=== PATIENT | female | born 1950 | race Caucasian/White ===

== ENCOUNTER 2017-03-20 16:05 | Emergency (ER) | payer BC ==
[2017-03-20 19:19] LABS: APPEARANCE SLT CLOUDY (CLEAR); BACTERIA FEW /hpf (NONE SEEN); BILIRUBIN NEGATIVE (NEGATIVE); EPITHELIAL CELLS 0-5 /hpf (0-5); GLUCOSE NEGATIVE (NEGATIVE); KETONE SMALL mg/dL (NEGATIVE); MUCUS <1+ /lpf (NONE SEEN); NITRITE NEGATIVE (NEGATIVE); PROTEIN NEGATIVE (NEGATIVE); RED CELLS - URINE >50 /hpf (0-5); UROBILINOGEN NORMAL (NORMAL); WHITE CELLS - URINE 0-5 /hpf (0-5)
== END 2017-03-20 19:19 | disposition home or self-care (01) ==
LOC: D.ER 16:05
PROVIDERS: Family Medicine
DX: R10.9 Unspecified abdominal pain (principal); N20.1 Calculus of ureter

== ENCOUNTER 2018-03-09 15:07 | Day surgery (SDC) | payer BC, MEDICARE ==
[~2018-03-09] VITALS: Ht 152.4 cm; Wt 56.8 kg
--- NOTE | ~2018-03-09 | OP ---
PATIENT NAME: FLAKO PIÑA MEDICAL RECORD: [id number] :50 [facility] AD[facility]ION DATE: SURGEON: SEBASTIÁN MAN DO DATE OF OPERATION: 03/09/2018 PROCEDURE: Colonoscopy with polypectomy. INDICATIONS FOR PROCEDURE: Stool DNA-based colorectal cancer screening, positive test. SCOPE: Olympus video pediatric colonoscope. MEDICATIONS: Propofol 400 mg IV per anesthesia. WITHDRAWAL TIME: 13 minutes. ESTIMATED BLOOD LOSS: Minimal. COMPLICATIONS: None. FINDINGS: Informed consent was given. The patient was made comfortable with the above medication. After reaching an adequate level of sedation by slow IV push, the patient was placed on her left side. A digital rectal examination was performed and was normal. The endoscope was then advanced under direct visualization through the rectum to the cecum and terminal ileum. The endoscope was slowly withdrawn and mucosa was carefully examined. The prep quality was excellent. There was evidence of pqsvbhnj-ea-ghdkam diverticulosis involving the descending and sigmoid colon. There was no evidence of diverticulitis. There were 4 polyps visualized on today's examination. Two of these polyps were located in the sigmoid colon. They were both benign appearing and sessile and ranged in size from 4-6 mm in diameter. They were both removed using a hot snare in 1 piece and completely retrieved. In the rectum, there were two benign-appearing mixed flat and sessile polyps, which ranged in size from 2-3 mm in diameter. They were both removed using a hot forceps. Retroflexion was performed in the rectum with visualization of grade I internal hemorrhoids without bleeding. The endoscope was then withdrawn from the patient. The patient tolerated the procedure well and there were no complications. IMPRESSION: 1. Four polyps as described above, removed using a combination of hot forceps and a hot snare. 2. Boicltre-bs-wtrzeh diverticulosis of the descending and sigmoid colon. 3. Grade I internal hemorrhoids without bleeding. PLAN AND RECOMMENDATIONS: 1. Discharge home when recovery parameters are met. 2. Follow up biopsy specimen results. 3. High fiber diet. 4. Continue current medications. 5. Recall colonoscopy in 3 years for surveillance of personal history of polyps. 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
[2018-03-09 09:18] LABS: HEMATOCRIT 48.8 % (36.0-48.0); HEMOGLOBIN 16.9 g/dL (12-16); MCH 32.6 pg (26.0-34.0); MCHC 34.6 g/dL (31.0-37.0); MEAN PLATELET VOLUME 11.4 fL (7.4-10.4); RBC 5.19 10x6/uL (4.00-5.40); RDW 12.9 % (11.5-14.5); WBC 10.6 10x3/uL (4.8-10.8)
[2018-03-09 10:12] VITALS: BP 138/71; Ht 152.4 cm; Wt 56.8 kg
[~2018-03-09 15:07] MED LIST: CRESTOR10 MG PO; MOBIC7.5 MG PO; SYNTHROID112 MCG PO
== END 2018-03-09 15:18 | disposition home or self-care (01) ==
LOC: D.OPS 15:07
PROVIDERS: Anesthesiology
DX: K62.1 Rectal polyp (principal); K63.89 Other specified diseases of intestine; D12.5 Benign neoplasm of sigmoid colon; K57.30 Diverticulosis of large intestine without perforation or abscess without bleeding; K64.0 First degree hemorrhoids; Z01.812 Encounter for preprocedural laboratory examination